=== PATIENT | male | born 1990 | race Caucasian/White ===

== ENCOUNTER 2017-04-10 10:23 | Emergency (ER) | payer OTHER ==
[~2017-04-10] VITALS: Ht 182.9 cm; Wt 90.7 kg
[~2017-04-10 10:23] MED LIST: BACTRIM DS TAB1 EACH PO; IBUPROFEN800 MG PO; STRATTERA40 MG PO; STRATTERA80 MG PO; TRAMADOL HCL50 MG PO
[2017-04-10] MEDS ORDERED: BACLOFEN10 MG PO (10:54)
[2017-04-10] MEDS ORDERED: NORCO 5-325 TA1 EACH PO (10:54)
[2017-04-10] MEDS ORDERED: METHYLPREDNISOLO4 M1 PO (10:54)
== END 2017-04-10 11:19 | disposition home or self-care (01) ==
LOC: ED 10:23
DX: S39.012A Strain of muscle, fascia and tendon of lower back, initial encounter (principal); X50.0XXA Overexertion from strenuous movement or load, initial encounter
CPT/HCPCS: 99283